=== PATIENT | female | born 1970 | race Caucasian/White ===

== ENCOUNTER 2019-02-08 11:07 | Day surgery (SDC) | payer OTHER ==
[~2019-02-08] VITALS: Ht 170.2 cm; Wt 60.3 kg
[2019-02-08] VITALS (8 sets, daily range): BP systolic 103–148; BP diastolic 64–74
[~2019-02-08 11:07] MED LIST: NKM
[2019-02-08] MEDS ORDERED: EPINEPHrine 1mg/1ml Amp ONE (12:16)
[2019-02-08] MEDS ORDERED: Ropivacaine 2mg/ml Amp 20ml INJ ONE ×3 (12:16→13:06)
[2019-02-08] MEDS ORDERED: cefOXitin 2gm Inj ONE (12:16)
[2019-02-08] MEDS ORDERED: Dexamethasone 4mg/ml vial ONE (12:17)
--- NOTE | 2019-02-08 12:32 | Pre-Procedure Note/Attestation ---
Pre-Procedure Note/Attestation Complete Prior to Procedure Procedure Narrative: Procedure for prolapse and hemrrhoids (PPH) Indications for Procedure Pre-Operative Diagnosis: Hemorrhoids Attestation I attest that I discussed the nature of the procedure; its benefits; risks and complications; and alternatives (and the risks and benefits of such alternatives ), prior to the procedure, with the patient (or the patient's legal retail representative). I attest that, if there was a reasonable possibility of needing a blood transfusion, the patient (or the patient's legal retail representative) was given the [facility] standardized written summary, pursuant to the [place] Blood Safety Act ([place] Health and Safety Code # 1645, as amended). I attest that I re-evaluated the patient just prior to the surgery and that there has been no change in the patient's H&P, except as documented below: Chinyere Granados MD February 08, 2019 12:32
[2019-02-08] MEDS ORDERED: Sodium Chloride 10ml vial INJ ONE ×2 (12:35→12:41)
[2019-02-08] MEDS ORDERED: Alfentanil 2ml Inj ONE (12:36)
[2019-02-08] MEDS ORDERED: Acetic Acid 3% Solution 15ml TOPIC SCH (12:45)
[2019-02-08] MEDS ORDERED: LR 1000ml 1,000 ML IVLG SCH (12:50)
--- NOTE | 2019-02-08 12:58 | Anethesia Preoperative Eval ---
Anesthesia Pre-op PMH/ROS General Date of Evaluation: February 08, 2019 Time of Evaluation: 12:51 Anesthesiologist: Wilmer ASA Score: ASA 2 Mallampati Score Class I : Soft palate, uvula, fauces, pillars visible Class II: Soft palate, uvula, fauces visible Class III: Soft palate, base of uvula visible Class IV: Only hard plate visible Mallampati Classification: Class I Surgeon: Roberta Diagnosis: Anal Pain Surgical Procedure: Hemorrhoidectomy Anesthesia History: none Family History: no anesthesia problems Allergies: Coded Allergies: No Known Allergies (Unverified , 02/07/19) Medications: see eMAR Patient NPO?: Yes Past Medical History Neurologic/Psychiatric: Reports: depression/anxiety, other - Migranes PSxH Narrative: C/S Anesthesia Pre-op Phys. Exam Physician Exam Last Vital Signs Date Time Temp Pulse Resp B/P (MAP) Pulse Ox O2 Delivery O2 Flow Rate FiO2 02/08/19 11:43 97.6 72 20 128/74 100 Room Air Constitutional: NAD Neurologic: CN 2-12 intact Cardiovascular: RRR Respiratory: CTA Gastrointestinal: S/NT/ND Airway Exam Mallampati Score: Class I Anesthesia Pre-op A/P Labs Urine Test Test 02/08/19 11:20 Urine HCG, Qualitative Negative (NEGATIVE) Risk Assessment & Plan Assessment: ASA 2 Plan: GA Status Change Before Surgery: No Pre-Antibiotics Dru Grams Cefoxitin IV Given Within 1 Hr of Incision: Yes Time Given: 12:04 Luis Guillen MD February 08, 2019 12:58
[2019-02-08] MEDS ORDERED: HYDROcodone/Acetamin 5/325 tab ORAL PRN (13:00)
[2019-02-08] MEDS ORDERED: fentaNYL 100 mcg/2 mL IV PRN (13:00)
[2019-02-08] MEDS ORDERED: Meperidine 50mg/ml Inj(FOR RIGORS ONLY) IVP PRN (13:00)
[2019-02-08] MEDS ORDERED: Propofol 200mg/20ml IV ONE (13:00)
[2019-02-08] MEDS ORDERED: Ketorolac 30mg Inj IV PRN ×2 (13:00)
[2019-02-08] MEDS ORDERED: Atropine Sulfate 0.4mg/ml inj IVP PRN (13:00)
[2019-02-08] MEDS ORDERED: Midazolam 2mg/2ml Inj IVP PRN (13:00)
[2019-02-08] MEDS ORDERED: oxyCODONE HCL/Acetaminophen 5/325mg ORAL PRN (13:00)
[2019-02-08] MEDS ORDERED: Labetalol 5mg/ml 20ml vial IV PRN (13:00)
[2019-02-08] MEDS ORDERED: HYDROcodone/Acetamin 7.5/325 tab ORAL PRN (13:00)
[2019-02-08] MEDS ORDERED: NS Irrig 1000ml ONE (13:00)
[2019-02-08] MEDS ORDERED: Hydromorphone 0.5mg/0.5ml inj IVP PRN (13:00)
[2019-02-08] MEDS ORDERED: Acetaminophen (Non formulary) 100 ML IV ONE (13:00)
[2019-02-08] MEDS ORDERED: Metoclopramide 10mg/2ml Inj IVP PRN (13:00)
[2019-02-08] MEDS ORDERED: Sterile Water Irrig 1000ml IRRIG ONE (13:00)
[2019-02-08] MEDS ORDERED: Lidocaine 1% MPF 10mg/ml 5ml ONE ×2 (13:00→13:43)
[2019-02-08] MEDS ORDERED: LR 1000ml ONE (13:00)
[2019-02-08] MEDS ORDERED: LORazepam Inj 2mg/ml 1ml IV PRN (13:00)
[2019-02-08] MEDS ORDERED: DiphenhydrAMINE 50mg/ml Inj IVP PRN (13:00)
[2019-02-08] MEDS ORDERED: Dexamethasone 4mg/ml vial INJ ONE (13:06)
[2019-02-08] MEDS ORDERED: Ropivacaine 5mg/ml Vial 30ml INJ ONE (13:11)
--- NOTE | 2019-02-08 13:22 | Immediate Post-Op Evaluation ---
Immediate Post-Op Evalulation Immediate Post-Op Evalulation Procedure: Hemorrhoidectomy Date of Evaluation: February 08, 2019 Time of Evaluation: 14:20 IV Fluids: 1000 LR Blood Products: 0 Estimated Blood Loss: 7 Urinary Output: 0 Blood Pressure Systolic: 128 Blood Pressure Diastolic: 74 Pulse Rate: 86 Respiratory Rate: 16 O2 Sat by Pulse Oximetry: 100 Temperature (Fahrenheit): 97.3 Pain Score (1-10): 1 Nausea: No Vomiting: No Complications 0 Patient Status: awake, reacts, patent, none Hydration Status: adequate Dru Grams Cefoxitin IV Given Within 1 Hr of Incision: Yes Time Given: 12:04 Luis Guillen MD February 08, 2019 13:22
--- NOTE | 2019-02-08 13:23 | 48 Hour Post Anesthesia Eval ---
Post Anesthesia Evaluation Procedure: Hemorrhoidectomy Date of Evaluation: February 08, 2019 Time of Evaluation: 16:23 Blood Pressure Systolic: 118 0: 76 Pulse Rate: 89 Respiratory Rate: 18 Temperature (Fahrenheit): 98.2 O2 Sat by Pulse Oximetry: 100 Airway: patent Nausea: No Vomiting: No Pain Intensity: 2 Hydration Status: adequate Cardiopulmonary Status: Stable Mental Status/LOC: patient returned to baseline Follow-up Care/Observations: 0 Post-Anesthesia Complications: 0 Follow-up care needed: ready to discharge Luis Guillen MD February 08, 2019 13:23
--- NOTE | 2019-02-08 14:05 | Brief Operative Note ---
Immediate Post Operative Note Operative Note Chief Complaint: Hemorrhoids Pre-op Diagnosis: Hemorrhoids Procedure: Procedure for Prolapse and Hemorrhoids (PPH) Post-op Diagnosis: Hemorrhoids Post-op Diagnosis: same as pre-op Findings: consistent w/pre-op dx studies Surgeon: Chinyere Granados MD Anesthesiologist: Luis Guillen MD Anesthesia: moderate sedation Specimen: yes Complications: none Condition: stable Fluids: see anesthesia record Estimated Blood Loss: minimal Drains: none Implant(s) used?: No Chinyere Granados MD February 08, 2019 14:05
--- NOTE | 2019-02-08 16:30 | Operative Note - Dictated ---
DATE OF OPERATION: 02/08/2019 PREOPERATIVE DIAGNOSIS: Prolapsing bleeding internal hemorrhoids. POSTOPERATIVE DIAGNOSIS: Prolapsing bleeding internal hemorrhoids. PROCEDURE: Procedure for prolapse and hemorrhoids (PPH). SURGEON: Chinyere Granados M.D. ANESTHESIOLOGIST: Luis Guillen M.D. ANESTHESIA: Propofol sedation with local anesthetic. INDICATION FOR PROCEDURE: The patient is a 48-year-old [place] female who initially saw ca in March 19, 2015 with large prolapsing internal hemorrhoids for the past 10 years. The patient felt that she had increasing size and did not respond to hemorrhoidal sclerotherapy back in 2012. The patient was undecided at that time and did not decide to do surgery until today. DESCRIPTION OF PROCEDURE: Upon consent of the patient, the patient brought to the operating room, and placed in a prone kwame-knife position on the operating table. Once adequate sedation was established with propofol drip, the patient's buttocks were prepped and draped in usual standard surgical fashion. A 40 mL of 0.5% ropivacaine with epinephrine mixed with 6 mg of dexamethasone was used as a perianal and pudendal block. A Hill-Shetty retractor was placed into the anal canal. There were noted to be large prolapsing internal hemorrhoids circumferentially with external anal skin tag in the posterior midline. The dilator Ethicon PPH stapler was inserted and removed. The dilator with clear obturator was inserted and the dilator was removed while the clear obturator was held firmly to the buttocks and placed. The pursestring anoscope was inserted and pursestring was created approximately 2 cm proximal to the dentate line using a 2-0 Monocryl suture. Upon completion of the pursestring, the anoscope was removed and the pursestring was tied around the anvil of the 33 mm hemorrhoidal PPH Ethicon stapler. Attention was applied to the suture while gradually closing the stapler. The perianal skin was checked to make sure there was no involvement of the perianal skin. The vaginal wall was checked both manually and visually to make sure there was no involvement of the vaginal wall. The staple was then fired, opened, and withdrawn and there was noted to be a complete hemorrhoidal donut. This was passed off the field as a specimen. The anoscope was then reinserted and some residual prolapse in the right posterior and left posterior region along with anal skin tags were excised in elliptical fashion and also sent off the field along with the specimen. The mucosal defect was closed with a running 2-0 Vicryl suture. The anal canal was then irrigated and hemostasis was confirmed. Any bleeding points along the staple line were ligated with [id number] 2-0 Vicryl suture. An ice pack was used for postoperative swelling. Sponge, needle, and instrument counts were correct at the end of the case. The patient was awakened from anesthesia and brought to postanesthesia recovery room in stable condition. ESTIMATED BLOOD LOSS: 5 mL. DRAINS: None. SPECIMEN: Hemorrhoidal donut. COMPLICATIONS: None. Chinyere Granados M.D. DR: Manjula JOB#: [id number] CC: Chinyere Granados M.D.; Fax#: [phone] Nikolas Veliz M.D.
== END 2019-02-08 15:30 | disposition home or self-care (01) ==
LOC: SUR 11:07
DX: K64.8 Other hemorrhoids (principal); K64.4 Residual hemorrhoidal skin tags; F32.9 Major depressive disorder, single episode, unspecified; F41.9 Anxiety disorder, unspecified
CPT/HCPCS: 46947; 81025; J0171; J0694; J1100; J2250; J2704; J2795; J3490; 94003; 94150